=== PATIENT | female | born 1995 | race Caucasian/White ===

== ENCOUNTER 2018-07-12 19:43 | Inpatient (IN) | payer OTHER ==
[~2018-07-12] VITALS: Ht 162.6 cm; Wt 74.2 kg
[2018-07-12] MEDS ORDERED: LACTATED RINGER'S 1,000 ML IV SCH (19:53)
[2018-07-12 19:55] VITALS: Ht 162.6 cm; Wt 74.2 kg
[2018-07-12] MEDS ORDERED: IBUPROFEN 600 MG TAB PO PRN (20:00)
[2018-07-12] MEDS ORDERED: AMPICILLIN 2 GM/NS (PMX) 100 ML IV ONE (20:00)
[2018-07-12] MEDS ORDERED: LIDOCAINE 1% (MPF) 30 ML INJ INJ PRN (20:00)
[2018-07-12] MEDS ORDERED: OXYTOCIN 30 UNITS/LR 500 ML IV PRN ×2 (20:00→23:00)
[2018-07-12] MEDS ORDERED: MISOPROSTOL 200 MCG TAB PR PRN ×2 (20:00→23:00)
[2018-07-12] MEDS ORDERED: OXYTOCIN 30 UNITS/LR 500 ML IV SCH ×3 (20:00→22:31)
[2018-07-12] MEDS ORDERED: CARBOPROST 250 MCG INJ IM PRN ×2 (20:00→23:00)
[2018-07-12] MEDS ORDERED: METHYLERGONOVINE 0.2 MG INJ IM PRN ×2 (20:00→23:00)
[2018-07-12] MEDS ORDERED: BUTORPHANOL 2 MG INJ IV PRN (20:00)
--- NOTE | 2018-07-12 20:04 | HP ---
Date/Time of Note Date/Time of Note DATE: 07/12/18 TIME: 20:02 OB - History Hx of Present Chief Complaint: contractions : 4 Para: 3 Care: Good Care Ultrasounds: Normal mid trimester US Obstetrical Complications: None Medical Complications: None Past Family/Social History * Past Medical, Surgical, Family and Obstetric Histories reviewed from chart. OB Admission Exam Physical Exam HEENT: WNL Heart: Rhythm Normal Lungs: Clear Abdomen: WNL Extremities: Normal Cervical Dilatation: 5cm Effacement: 75% Station: -2 Membranes: Intact Accelerations: Accelerations Present Decelerations: No Decelerations Varibility: Moderate Contractions on Admission: < 5 Minutes Apart OB Assessment/Plan Reason for admission: active labor Plan: Expectant Management SHRUTHI MCFARLANE Jul 12, 2018 20:04
[2018-07-12] MEDS: LACTATED RINGER'S 1,000 ML IV PRN ×2 (20:09→20:55)
--- NOTE | 2018-07-12 20:36 | TRIAGE ---
OB Triage Datetime Report Generated by CPN: 07/12/2018 20:36 Datetime: 07/12/2018 20:32 Assessment Type: Admission Assessment Vaginal Bleeding: None Maternal Assessment Level of Consciousness: Fully Conscious DTR's/Clonus: DTRs 2+; No Clonus Headache: Denies Blurred Vision: No Respiratory Effort: Unlabored; Regular Rhythm; Equal Expansion Breath Sounds, Left: Clear and Equal Breath Sounds, Right: Clear and Equal Nausea/Vomiting: Denies RUQ Epigastric Pain: Denies Lower Extremities Edema: None Degree: None Upper Extremities Edema: None Degree: None Facial Edema: None Fall Risk Assessment History of Falling: (0) No Secondary Diagnosis: (0) No Ambulatory Aid: (0) Bedrest/Nurse Assist IV Therapy: (20) Yes Gait: (0) Normal/Bedrest/Immobile Mental Status: (0) Oriented to Own Ability Pain Assessment Pain Scale: 10 Pain Presence: Intermittent Pain Type: Contraction Pain Location: Abdomen Pain Goal: 2 Membrane Status: Intact Datetime: 07/12/2018 20:18 Time of Arrival: 07/12/2018 19:57 EGA: 38.2 Arrived By: Ambulatory Arrived From: Home Datetime: 07/12/2018 20:05 Pain Assessment Pain Scale: 10 Pain Assessment Comments: informed patient of process for epidural Datetime: 07/12/2018 19:48 Vaginal Exam Dilatation (cms): 5.0 Effacement (%): 70 Station: -2 Exam By: david hanna Vaginal Bleeding: None Cervix, Consistency: Soft Cervix, Position: Posterior Presentation 'A': Cephalic Datetime: 07/12/2018 19:37 Time of Arrival: 07/12/2018 19:37 EGA: 38.2 Arrived By: Ambulatory Arrived From: Home Chief Complaint: UC'S SINCE A.M., WAS EVALUATED AT [facility] AND SENT HOME Movement: Present Contractions: Regular Time Contractions Began: 07/12/2018 09:00 Contractions: 5 Rupture of Membranes: Denies Vaginal Bleeding: None Vaginal Discharge: Denies Recent Sexual Intercouse: Denies Abdominal Trauma: Not Applicable Patient Complaints: Contractions Time Provider Notified: 07/12/2018 19:51 Provider Notified: UAJE Initial Plan: EFM, SVE, CALL OB Datetime: 06/27/2018 22:59 Stage of : OB Triage Heart Rate FHR Baseline Rate: 140 FHR Baseline Changes: No Baseline Change Variability: Moderate 6-25 bpm Accelerations: 15X15 Decelerations: Early Category: Category II Datetime: 06/27/2018 21:56 Stage of : OB Triage Monitor Mode: External Quality: Mild Pattern: Normal: <= 5 Contractions in 10 Minutes Resting Tone [place]: Relaxed Heart Rate FHR Baseline Rate: 135 Monitor Mode: External US FHR Baseline Changes: No Baseline Change Variability: Moderate 6-25 bpm Accelerations: 15X15 Decelerations: None Membrane Status: Intact Datetime: 06/27/2018 21:00 Stage of : OB Triage Monitor Mode: External Quality: Mild Pattern: Normal: <= 5 Contractions in 10 Minutes Resting Tone [place]: Relaxed Heart Rate FHR Baseline Rate: 130 Monitor Mode: External US FHR Baseline Changes: No Baseline Change Variability: Moderate 6-25 bpm Accelerations: 15X15 Decelerations: None Category: Category I Datetime: 06/27/2018 19:54 Stage of : Antepartum Monitor Mode: External Quality: Mild Pattern: Normal: <= 5 Contractions in 10 Minutes Resting Tone [place]: Relaxed Heart Rate FHR Baseline Rate: 130 Monitor Mode: External US FHR Baseline Changes: No Baseline Change Variability: Moderate 6-25 bpm Accelerations: 15X15 Decelerations: None Category: Category I Pain Assessment Pain Scale: 0 Pain Presence: None/Denies Pain Type: N/A Datetime: 06/27/2018 19:20 Stage of : OB Triage Datetime: 06/27/2018 19:00 Stage of : OB Triage Labor Evaluation Frequency: 0 Monitor Mode: External Resting Tone [place]: Relaxed Heart Rate FHR Baseline Rate: 140 Monitor Mode: External US Variability: Moderate 6-25 bpm Accelerations: 15X15 Decelerations: None Category: Category I Pain Assessment Pain Scale: 0 Pain Presence: None/Denies Pain Type: N/A Pain Goal: 0 Datetime: 06/27/2018 18:50 Stage of : OB Triage Datetime: 06/27/2018 17:59 EGA: 36.1 Datetime: 06/27/2018 17:50 Assessment Type: Triage DTR's/Clonus: DTRs 2+ Headache: Denies Blurred Vision: No Respiratory Effort: Unlabored Breath Sounds, Left: Clear and Equal Breath Sounds, Right: Clear and Equal Nausea/Vomiting: Denies RUQ Epigastric Pain: Denies Lower Extremities Edema: None Degree: None Upper Extremities Edema: None Degree: None Facial Edema: None Fall Risk Assessment History of Falling: (0) No Secondary Diagnosis: (0) No Ambulatory Aid: (0) Bedrest/Nurse Assist IV Therapy: (0) No Gait: (0) Normal/Bedrest/Immobile Mental Status: (0) Oriented to Own Ability Fall Score: 0 Fall Risk Score Definition: No Risk: No action required Datetime: 06/27/2018 17:15 Time of Arrival: 06/27/2018 17:15 Arrived By: Ambulatory Arrived From: Office Chief Complaint: EVALUATE FOR RPR REACTIVE AND SGA Movement: Present Contractions: Denies/Absent Rupture of Membranes: Denies Vaginal Bleeding: None Vaginal Discharge: Denies Recent Sexual Intercouse: Denies Abdominal Trauma: Not Applicable Patient Complaints: None (Annotations: Data stored by CPN on behalf of user) Initial Plan: BPP, EFW, NST, RPR
[2018-07-12] MEDS ORDERED: FENTAnyl 2MCG/ML-ROPIV 0.2% 100 ML ONE (21:00)
--- NOTE | 2018-07-12 21:15 | PREAC ---
Date/Time of Note Date/Time of Note DATE: 07/12/18 TIME: 21:13 Anesthesia Eval and Record Evaluation Time Pre-Procedure Interview DATE: 07/12/18 TIME: 20:33 Age 23 Sex female NPO: 8 hrs Preoperative diagnosis iup @ 38 wks., , labor Planned procedure callum Past Medical History Past Medical History: Includes : : (4), Para: (3), Gestational age: (38 wks.) Surgery & Anesthesia Issues No known issue Meds Anticoagulation: No Beta Lupe within 24 hr: No Reason Beta Lupe not given: Pt. not on B-Lupe No Active Prescriptions or Reported Meds Current Medications Lactated Ringer's 1,000 ml @ 125 mls/hr Q8H IV ; Start 07/12/18 at 19:53 Ampicillin 50 ml @ 100 mls/hr Q4H IV ; Start 07/13/18 at 00:00 Butorphanol Tartrate (Stadol) 2 mg Q2H PRN IV .PAIN; Start 07/12/18 at 20:00 Lidocaine (Xylocaine 1% (Mpf)) 30 ml ONCE PRN INJ .EPISIOTOMY; Start 07/12/18 at 20:00 Oxytocin/Lactated Ringer's 500 ml @ 500 mls/hr ONCE POST IV ; Start 07/12/18 at 20:00 Oxytocin/Lactated Ringer's 500 ml @ 125 mls/hr POST IV ; Start 07/12/18 at 20:00 Ibuprofen (Motrin) 600 mg ONCE PRN PO .PAIN 1-5; Start 07/12/18 at 20:00 Lactated Ringer's 1,000 ml @ 2,000 mls/hr Q30M PRN IV .ANESTHESIA Last administered on 07/12/18at 20:55; Admin Dose 2,000 MLS/HR; Start 07/12/18 at 19:53 Oxytocin/Lactated Ringer's 500 ml @ 0 mls/hr ONCE PRN IV .VAGINAL BLEEDING; Start 07/12/18 at 20:00 Methylergonovine Maleate (Methergine) 0.2 mg ONCE PRN IM .VAGINAL BLEEDING; Start 07/12/18 at 20:00 Carboprost Tromethamine (Hemabate) 250 mcg ONCE PRN IM .VAGINAL BLEEDING; Start 07/12/18 at 20:00 Misoprostol (Cytotec) 1,000 mcg ONCE PRN [place] .VAGINAL BLEEDING; Start 07/12/18 at 20:00 Meds reviewed: Yes Allergies Coded Allergies: No Known Allergy (Unverified , 06/27/18) Allergies Reviewed: Yes Labs/Studies Labs Reviewed: Reviewed by anesthesiologist Result Diagram: 07/12/182004 Laboratory Tests 07/12/18 20:05 Blood Bank Test 07/12/18 20:05 Blood Type A POSITIVE Rh Immune Globulin Candidate NO test: Positive Studies: ECG (n/a), CXR (n/a) Pre-procedure Exam Airway: Adequate mouth opening, Adequate thyromental dist Mallampati: Mallampati II Teeth: Normal Lung: Normal Heart: Normal ASA Physical Status ASA physical status: 2 Emergency: E Planned Anesthetic Neuraxial: Epidural Planned Pain Management Local by surgeon Pre-operative Attestations Prior to commencing anesthesia and surgery, the patient was re-evaluated, there was verification of: *The patient's identity *The results of appropriate recent lab work and preoperative vital signs *The above evaluation not changing prior to induction *Anesthetic plan, risk benefits, alternative and complications discussed with patient/family; questions answered; patient/family understands, accepts and wishes to proceed. Tunnel Heading Inspector used KIKO LOMAS MD Jul 12, 2018 21:15
--- NOTE | 2018-07-12 21:16 | PAC ---
Date/Time of Note Date/Time of Note DATE: 07/13/18 TIME: 14:00 Post-Anesthesia Notes Post-Anesthesia Note Activity: WNL Respiratory function: WNL Cardiovascular function: WNL Mental status: Baseline Pain reasonably controlled: Yes Hydration appropriate: Yes Nausea/Vomiting absent: Yes KIKO LOMAS MD Jul 12, 2018 21:16
[2018-07-12] MEDS ORDERED: NALOXONE (0.4 MG/ML) INJ IV PRN (21:30)
[2018-07-12] MEDS ORDERED: FENTAnyl 2MCG/ML-ROPIV 0.2% 100 ML BAG EPI SCH (21:30)
--- NOTE | 2018-07-12 22:30 | LDN ---
Date/Time of Note Date/Time of Note DATE: 07/12/18 TIME: 22:29 Delivery Summary Placenta Delivered: Spontaneously Meconium: none Episiotomy: No Laceration repair: Intact Anesthesia type: Epidural Estimated blood loss: 300 Sponge & Needle done & correct: Yes All needle counts correct: Yes Any foreign bodies felt in the: No Infant Delivery Information Sex Infant Sex: female Apgars 1 Minute: 9 5 Minute: 9 Suctioning Nose & mouth suctioned at anibal: Yes Umbilical Cord Umbilical cord with: 3 Vessels Cord presentations: no nuchal cord Cord Blood was obtained: Yes Mother & Baby Disposition Disposition Mom & Baby to Maternity; Good: Yes SHRUTHI MCFARLANE Jul 12, 2018 22:29
[2018-07-12] MEDS: LACTATED RINGER'S 1,000 ML IV* SCH (22:31)
[2018-07-12] MEDS ORDERED: WITCH HAZEL/GLYCERIN PAD PR PRN (23:00)
[2018-07-12] MEDS ORDERED: HYDROCODONE/APAP (5/325) TAB PO PRN ×2 (23:00)
[2018-07-12] MEDS ORDERED: LANOLIN HPA 1 PKT TOP PRN (23:00)
[2018-07-12] MEDS ORDERED: DIBUCAINE 1% 30 GM OINT TOP PRN (23:00)
[2018-07-12] MEDS ORDERED: BENZOCAINE 20% 56 ML SPRAY TOP PRN (23:00)
[2018-07-13] MEDS ORDERED: AMPICILLIN 1 GM/NS (PMX) 50 ML IV SCH
[2018-07-13 00:25] VITALS: BP 100/56; PULSE 94; RESP 18
[2018-07-13 03:30] VITALS: BP 101/57; PULSE 92; RESP 19
[2018-07-13] MEDS: IBUPROFEN 600 MG TAB PO SCH ×5 (05:45→23:30)
[2018-07-13] MEDS: LACTATED RINGER'S 1,000 ML IV* SCH ×3 (06:31→22:31)
[2018-07-13 08:00] VITALS: BP 95/53; PULSE 81; RESP 18
--- NOTE | 2018-07-13 10:35 | PN ---
Date/Time of Note Date/Time of Note DATE: 07/13/18 TIME: 10:34 OB Subjective Subjective Subjective Patient without complaints. OB Objective Objective Objective Gen: NAD Abd: FF OB Assessment/Plan Other Assessment: PPD1 Other plan: -continue routine care -anticipate discharge home tomorrow SHRUTHI MCFARLANE Jul 13, 2018 10:35
[2018-07-13 15:55] VITALS: BP 98/49; PULSE 82; RESP 18
[2018-07-13 19:50] VITALS: BP 91/50; PULSE 99; RESP 18
[2018-07-14 03:33] VITALS: BP 99/57; PULSE 82; RESP 18
[2018-07-14] MEDS: IBUPROFEN 600 MG TAB PO SCH ×2 (05:55→12:00)
[2018-07-14 08:00] VITALS: BP 111/56; PULSE 81; RESP 17
--- NOTE | 2018-07-14 08:44 | PD.PPDC ---
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
--- NOTE | 2018-07-14 08:46 | DS ---
Date/Time of Note Date/Time of Note DATE: 07/14/18 TIME: 08:45 Obstetrical Discharge Record Final Diagnosis Final Diagnosis: Term delivered Vaginal Delivery Obstetrical Delivery: Spontaneous Complications Other (syphillis ) Augmentation: No Induction: No Condition on Discharge Physical Assessment Voiding: Yes Bowel Movement: Yes Breast: Soft, non-tender, Filling Fundus: Firm Abdomen and Incision: soft nt Calf Tenderness: No Patient Condition: Fair ELTON ASTUDILLO MD Jul 14, 2018 08:46
[2018-07-14] MEDS ORDERED: MEASLES,MUMPS,RUBELLA VACCINE INJ SC* ONE (09:00)
[2018-07-14] MEDS ORDERED: VARICELLA VACCINE LIVE/PF 1,350 UNIT/0.5 ML ML SC* ONE (09:00)
[2018-07-14] MEDS ORDERED: DIPHTH/TET/ACEL PERTUSS (ADULT) 0.5 ML VIAL IM* ONE (09:00)
== END 2018-07-14 15:20 | disposition home or self-care (01) | DRG 807 ==
LOC: L-D 19:43 → OBT 19:43 → L-D 19:56 → OBT 19:56 → L-D 20:41 → PP1 07-13 00:17
PROVIDERS: ADMIT Obstetrics & Gynecology; ATTEND Obstetrics & Gynecology
PROC: 10E0XZZ Delivery of Products of Conception, External Approach (ICD-10-PCS; principal; 2018-07-12)
DX: O98.12 Syphilis complicating childbirth (principal); Z37.0 Single live birth; Z3A.38 38 weeks gestation of pregnancy; Z23 Encounter for immunization
CPT/HCPCS: 62319; 80307; 85025; 85610; 85730; 86592; 86850; 86900; 86901; 87340; 90715; 90716; G0463; J0290; J2590; J3010; J7120